=== PATIENT | male | born 1955 | race Two or more races ===

== ENCOUNTER 2025-05-06 04:16 | Emergency (ER) | payer MEDICARE, MEDICAID, SELFPAY ==
[2025-05-06 04:23] VITALS: BP 154/88; PULSE 88; RESP 18; TEMP 36.6; O2SAT 93
--- NOTE | 2025-05-06 04:31 | EKG_ITS ---
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1955 Requested By: ED Temporary Provider Order Number: [id number] Reading MD: ED Temporary Provider Measurements Intervals [place] Rate: 72 P: 31 LA: 228 QRS: 9 QRSD: 92 T: 153 QT: 368 QTc: 404 Interpretive Statements SINUS RHYTHM WITH FIRST DEGREE AV BLOCK WITH OCCASIONAL VENTRICULAR PREMATURE COMPLEXES POSSIBLE RIGHT VENTRICULAR CONDUCTION DELAY [RSR (QR) IN V1/V2] ST DEVIATION AND MODERATE T-WAVE ABNORMALITY, CONSIDER LATERAL ISCHEMIA [-0.1+ mV T-WAVE IN I/aVL/V5/V6] Compared to ECG 08/21/2024 08:50:08 Ventricular premature complex(es) now present T-wave abnormality now present Possible ischemia now present Myocardial infarct finding no longer present /store/S0/[id number]
--- NOTE | 2025-05-06 04:51 | PD.EDCHEST ---
ED Chest Pain RME/HPI General Chief Complaint: Chest Pain Stated Complaint: RIGHT CHEST AREA PAIN Time Seen by Provider: 05/06/25 04:50 Arrival date/time: 05/06/25 04:16 RME / HPI RME / HPI narrative: 69-year-old male presents to the ED with a complaint of right-sided chest pain and shortness of breath. He has difficulty breathing while laying flat in bed and attempting to sleep. His symptoms have been going on for at least 6 months to 1 year. He is supposed to be using a CPAP machine and needs filters and a new mask however his doctor is not getting them ordered for him. Related Data Home Medications ?Medication ?Instructions ?Recorded ?Confirmed digoxin 125 mcg (0.125 mg) tablet 0.125 mg PO QDAY 01/31/19 08/21/24 (Digox) meclizine 25 mg tablet 25 mg PO QDAY PRN Dizziness Or 01/31/19 08/21/24 Vertigo atorvastatin 40 mg tablet 40 mg PO QDAY 06/15/21 08/21/24 tamsulosin 0.4 mg capsule 0.4 mg PO QDAY 08/29/21 08/22/24 apixaban 2.5 mg tablet (Eliquis) 2.5 mg PO BID 08/17/23 08/21/24 Held on 08/22/24. Instructions: Resume on 08/23/24. hold eliquis, may resume monday08/23/24 cilostazol 100 mg tablet 100 mg PO BID 08/17/23 08/21/24 cephalexin 500 mg capsule 500 mg PO TID 08/21/24 08/21/24 acetaminophen 650 mg 650 mg PO BID 08/22/24 08/22/24 tablet,extended release cyclobenzaprine 10 mg tablet 10 mg PO HS PRN pain,moderate 08/22/24 08/22/24 losartan 50 mg tablet 50 mg PO DAILY 08/22/24 08/22/24 multivitamin 1 tab PO QAM 08/22/24 08/22/24 Previous Rx's ?Medication ?Instructions ?Recorded aspirin 81 mg capsule 81 mg PO QDAY #60 caps 11/14/23 clopidogrel 75 mg tablet (Plavix) 75 mg PO QDAY #60 tabs 11/14/23 Allergies Allergy/AdvReac Type Severity Reaction Status Date / Time No Known Allergies Allergy Verified 05/06/25 04:23 Review of Systems Review of Systems Systems Reviewed: All systems reviewed, normal except as documented Past Medical History Past Medical History NEUROLOGIC: Negative Neurological Disorders, Cerebrovascular Accident, Transient Ischemic Attacks (TIA), Dementia, Alzheimer's Disease, Parkinson's Disease, Brain Tumor, Meningitis, Seizures, Epilepsy, Multiple Sclerosis, Cerebral Palsy, Amyotrophic Lateral Sclerosis (ALS/Margoth Gehrig's), Guillain-Boswell Syndrome, Spina Bifida, Paralysis, Peripheral Neuropathy, Frank's Palsy, Subdural Hematoma, Migraine, Head Trauma, Spinal Cord Injury or Traumatic Brain Injury CARDIAC: Positive Cardiac Disorders, Myocardial Infarction, Cardiac Arrhythmia, Peripheral Vascular Disease, Hypercholesterolemia and Hypertension; Negative Atrial Fibrillation, Angina, Heart Murmur, Coronary Artery Disease, Atherosclerotic Heart Disease, Aneurysm, Congestive Heart Failure, Congenital Heart Disease, Valvular Heart Disease, Rheumatic Fever, Cardiomyopathy, Edema, Pericarditis, Cellulitis, Deep Vein Thrombosis, Hypotension or Varicose Veins RESPIRATORY: Positive Asthma, Bronchitis and Tuberculosis; Negative Chronic Obstructive Pulmonary Disease (COPD), Emphysema, Pneumonia, Pulmonary Fibrosis, Pulmonary Embolism, Pulmonary Edema or Sleep Apnea GASTROINTESTINAL: Positive Gastrointestinal Disorders and Gastroesophageal Reflux Disease; Negative Hepatitis, Cirrhosis, Pancreatitis, Celiac Disease, Gall Bladder Disease, Gastrointestinal Bleed, Esophageal Varices, Ochoa's Esophagus, Colitis, Ulcerative Colitis, Diverticulitis, Diverticulosis, Ulcer, Colorectal Cancer, Irritable Bowel, Crohn's Disease, Obstructive Bowel, Hiatal Hernia, Hemorrhoids or Obesity GENITOURINARY: Positive Genitourinary Disorders and Benign Prostatic Hyperplasia; Negative Renal Disease, Kidney Stones, Polycystic Kidney Disease, Neurogenic Bladder, Inguinal Hernia, Dialysis or Prostate Cancer REPRODUCTIVE: Negative Breast Cancer or Testicular Cancer MUSCULOSKELETAL: Positive Musculoskeletal Disorders and Arthritis; Negative Muscular Dystrophy, Myasthenia Gravis, Marfan's Syndrome, Bone Cancer, Rheumatoid Arthritis, Osteoporosis, Degenerative Disk Disease, Gout, Scoliosis, Carpal Tunnel Syndrome, Fibromyalgia, Fractures, Degenerative Joint Disease, Osteomyelitis or Poliovirus ENT: Negative Cataracts, Glaucoma, Blind, Retinal Detachment, Macular Degeneration, Ear Infection, Deafness, Head Trauma or Eye Prosthesis ENDOCRINE: Negative Endocrine Disorders, Diabetes Mellitus Type 1, Diabetes Mellitus Type 2, Hypoglycemia, Marissa's Syndrome, Murtaza's Disease, Hyperthyroidism, Hypothyroidism, Parathyroid Disease, Pituitary Disease, Systemic Lupus Erythematosus, Syndrome of Inappropriate Antidiuretic Hormone (SIADH), Adrenal Disease or Graves' Disease HEMATOLOGIC: Negative Blood Disorders, Anemia, Leukemia, Hemophilia, Thalassemia, Sickle Cell Disease or Clotting Problems PSYCHO/SOCIAL: Negative Psychiatric Problems, Schizophrenia, Recreational Drug Use, Bipolar Disorder, Depression, Anxiety, Behavior Problems, Self-Mutilation, Attention Deficit Disorder, Attention Deficit Hyperactivity Disorder, Depression, Post Traumatic Stress Disorder or Eating Disorder OTHER HISTORY: Positive Hospitalization; Negative Autoimmune Disease, Down Syndrome, Autism, Developmental Delay, Shingles, Falls, Blood Transfusions, Blood Transfusion Reaction, Anesthesia Reactions, Organ Transplant, Chemotherapy, Radiation Therapy, Hyperbaric Therapy, MRSA, VRSA, Vancomycin-Resistant Enterococci, Human Immunodeficiency Virus (HIV), Chicken Pox, Measles, Mumps, Rubella (Croatian Measles), Pertussis, Clostridium Difficile, Cancer, Breast Cancer, Colorectal Cancer, Lung Cancer, Prostate Cancer or Testicular Cancer Family History FAMILY HISTORY: Positive Family Cardiac Disorders and Family Surgery; Negative Family Psychiatric Problems, Family Respiratory Disorders, Family Gastrointestinal Problems, Family Cancer or Family Anesthesia Reaction Surgical History SURGICAL: Positive Valve Replacement; Negative Cardiac Surgery, Open Heart Surgery, Coronary Artery Bypass Graft, Vascular Surgery, Coronary Stent, Cardiac Catheterization, Pacemaker, Angiogram, Auto Implanted Cardiovert Defib, Carotid Endarterectomy, Endocrine Surgery, Thyroidectomy, Ear Surgery, Tympanostomy Tube, Eye Surgery, Nose Surgery, Oral Surgery, Tonsillectomy, Adenoidectomy, Cochlear Implant, Corneal Transplant, Throat Surgery, Abdominal Surgery, Tracheostomy, Gastric Bypass Surgery, Gastrostomy, Bowel Surgery, Nephrectomy, Transurethral Resection, Joint Replacement, Amputation, Open Reduction Internal Fixation, Arthroscopy, Neurologic Surgery, Brain Shunt, Vasectomy or Organ Transplant Social History SMOKING STATUS: Never smoker SECOND HAND EXPOSURE: No SUBSTANCE USE: does not use ED Exam Narrative Physical exam: Alert and oriented, Gambian-speaking male, no acute distress. He is afebrile. Blood pressure 154/88, pulse 88, respirations 18 and unlabored, temp 97.8, O2 sat 93% on room air. Lungs are diminished at the bases, chest with sternotomy scar, regular rate and rhythm with mechanical valve click noted. Abdomen is soft with mild generalized tenderness. 1+ pitting edema to the bilateral lower extremities. Course Orders Category Date Time Status EKG (ED ONLY) *Do not use* NOW Care 05/06/25 04:31 Active EKG (ED Only) Stat Exams 05/06/25 04:31 Ordered Vital Signs Vital signs: Vital Signs Temperature 97.8 F 05/06/25 04:23 Pulse Rate 88 05/06/25 04:23 Respiratory Rate 18 05/06/25 04:23 Blood Pressure 154/88 H 05/06/25 04:23 Pulse Oximetry (%) 93 L 05/06/25 04:23 Oxygen Delivery Method Room Air 05/06/25 04:23 Discharge Plan Prescriptions/Referrals Prescriptions/Med Rec: No Action meclizine 25 mg tablet 25 mg PO QDAY PRN (Reason: Dizziness Or Vertigo) digoxin [Digox] 125 mcg tablet 0.125 mg PO QDAY Eliquis 2.5 mg tablet 2.5 mg PO BID cilostazol 100 mg tablet 100 mg PO BID atorvastatin 40 mg Tablet 40 mg PO QDAY tamsulosin 0.4 mg capsule 0.4 mg PO QDAY Patient Comments: RYANN Barakat C PSULA POR V A ORAL TODOS LOS D clopidogrel [Plavix] 75 mg Tablet 75 mg PO QDAY Qty: 60 0RF aspirin 81 mg Capsule 81 mg PO QDAY Qty: 60 0RF cephalexin 500 mg Capsule 500 mg PO TID multivitamin Tablet 1 tab PO QAM losartan 50 mg Tablet 50 mg PO DAILY cyclobenzaprine 10 mg Tablet 10 mg PO HS PRN (Reason: pain,moderate) acetaminophen 650 mg Tablet Extended Release 650 mg PO BID Patient/Caregiver Discharge Instructions Print Language: Gambian
--- NOTE | 2025-05-06 04:55 | XR_ITS ---
Examination: PA lateral chest 2 views TECHNIQUE: Upright PA and lateral chest 2 views INDICATION: Chest pain today. Date and time: May 06, 2025 0500 hours FINDINGS: Cardiac valve ring likely aortic Median sternotomy wires Minor prominence left ventricle No pneumonia or pulmonary edema Increased AP dimension chest IMPRESSION: No pneumonia or pulmonary edema
--- NOTE | 2025-05-06 05:22 | PD.EDRME ---
Rapid Medical Screening Exam RME Chief Complaint: Chest Pain Time Seen by Provider: 05/06/25 04:50 Vital signs: Vital Signs Temperature 97.8 F 05/06/25 04:23 Pulse Rate 88 05/06/25 04:23 Respiratory Rate 18 05/06/25 04:23 Blood Pressure 154/88 H 05/06/25 04:23 Pulse Oximetry (%) 93 L 05/06/25 04:23 Oxygen Delivery Method Room Air 05/06/25 04:23 RME Narrative: 69-year-old male presents to the ED with a complaint of right-sided chest pain and shortness of breath. He has difficulty breathing while laying flat in bed and attempting to sleep. His symptoms have been going on for at least 6 months to 1 year. He is supposed to be using a CPAP machine and needs filters and a new mask however his doctor is not getting them ordered for him. I have greeted and performed a focused initial assessment of this patient. A comprehensive ED assessment and evaluation of the patient, analysis of all test results, and completion of the medical decision making process will be conducted by additional ED providers.
[2025-05-06 05:37] LABS: Basophils % (Auto) 0 % (0-2.5); Eosinophils # (Auto) 0.2 Thou/mm3 (0.0-0.5); Eosinophils % (Auto) 4 % (0-10); Hematocrit 39.7 % (41.0-53.0); Hemoglobin 14.2 g/dL (13.5-16.0); Immature Granulocytes % (Auto) 0 % (0-0); Immature Granulocytes Auto 0.01 Thou/mm3 (0.00-0.00); Lymphocytes # (Auto) 0.9 Thou/mm3 (1.0-4.8); Lymphocytes % (Auto) 18 % (10-50); Mean Corpuscular HGB Conc 35.8 g/dl (31.0-37.0); Mean Corpuscular Hemoglobin 31.5 pg (25.0-35.0); Mean Corpuscular Volume 88 fL (80-100); Monocytes # (Auto) 0.5 Thou/mm3 (0.0-0.8); Monocytes % (Auto) 9 % (0-12); Neutrophils # (Auto) 3.3 Thou/mm3 (1.8-7.7); Neutrophils % (Auto) 68 % (37-80); Nucleated Red Blood Cell % 0 /100 WBC (0); Platelet Count 179 Thou/mm3 (140-440); RDW Standard Deviation 43.2 fL (35.1-43.9); Red Blood Count 4.51 Miln/mm3 (4.50-5.90); White Blood Count 4.9 Thou/mm3 (3.8-10.6)
[2025-05-06 05:58] LABS: B-Type Natriuretic Peptide < 20 pg/mL (0-100)
[2025-05-06 05:59] LABS: Alanine Aminotransferase 24 U/L (10-49); Albumin, Serum 4.2 gm/dL (3.4-4.8); Alkaline Phosphatase 68 U/L (46-116); Anion Gap 9 (7-16); BUN/Creatinine Ratio 11 Ratio (12-20); Bilirubin,Total 0.5 mg/dL (0.3-1.2); Blood Urea Nitrogen 10 mg/dL (9-23); Calcium 9.1 mg/dL (8.3-10.6); Calcium (Corrected) 9.1 mg/dL (8.5-10.1); Carbon Dioxide 24.8 mMol/L (20.0-31.0); Chloride 109 mMol/L (98-107); Creatinine (Component) 0.9 mg/dL (0.6-1.3); Globulin 2.1 gm/dL (2.3-3.5); Glucose 102 mg/dL (74-106); LDH (Lactate Dehydrogenase) 215 U/L (120-246); Magnesium 1.8 mg/dL (1.6-2.6); Osmolality,Calculated 283 (275-295); Potassium 4.1 mMol/L (3.4-5.1); Sodium 143 mMol/L (136-145); Total Protein 6.3 gm/dL (5.7-8.2); Troponin I < 0.020 ng/mL (0.0-0.045); eGFR > 60 See Note
[2025-05-06 06:00] LABS: Partial Thromboplastin Time 25.8 Seconds (22.0-36.0); Prothrombin Time 10.7 Seconds (9.0-12.2)
[2025-05-06 06:19] LABS: Collection Type, Urine Clean Catch; Squamous Epithelial Cell,Urine 0 /hpf (0-5)
[2025-05-06 06:36] LABS: Amphetamine/Methamp Scrn,U Negative (Negative); Barbiturate Screen,Urine Negative (Negative); Benzodiazepines Screen,Urine Negative (Negative); Benzoylecgonine Screen, Ur Negative (Negative); Fentanyl Screen,Urine Negative (Negative); Opiate Screen,Urine Negative (Negative); THC Screen,Urine Negative (Negative)
[2025-05-06 06:45] LABS: Bacteria,Urine Rare; Bilirubin,Urine Negative (Negative); Blood,Urine Negative (Negative); Clarity,Urine Clear (Clear/Hazy); Color,Urine Colorless (Lt Yel-Yel); Glucose, Urine Negative (Negative); Ketones,Urine Negative (Negative); Leukocyte Esterase,Urine Negative (Negative); Nitrite,Urine Negative (Negative); Protein,Urine Negative (Neg - Trace); RBC,Urine 1 /hpf (0-3); Urobilinogen,Urine Negative mg/dL (0.0-1.0); WBC,Urine 1 /hpf (0-5)
[2025-05-06 07:53] VITALS: BP 161/96; PULSE 81; RESP 19; TEMP 36.7; O2SAT 96
[2025-05-06 07:59] VITALS: BMI 35.4
--- NOTE | 2025-05-06 08:29 | XR_ITS ---
Examination: AP chest single view Technique one AP portable upright chest single view Date and time: May 06, 2025 0837 hours Comparison May 06, 2025 INDICATIONS: Onset acute chest pain today FINDINGS: Normal heart size Aortic valve ring Median sternotomy wires. No pneumonia or pulmonary edema IMPRESSION: No active disease
[2025-05-06] MEDS: ASPIRIN 81 MG CHEW 324 MG PO (09:04)
[2025-05-06 09:05] VITALS: PULSE 83; RESP 19; RESP 97
[2025-05-06] MEDS: SODIUM CHLORIDE 0.9% 500 ML 500 ML 999 ML IV (09:17)
[2025-05-06 09:19] LABS: Digoxin 0.6 ng/mL (0.8-2.0); Magnesium 1.9 mg/dL (1.6-2.6); Troponin I < 0.020 ng/mL (0.0-0.045)
--- NOTE | 2025-05-06 09:20 | PD.EDCHEST ---
ED Chest Pain RME/HPI General Chief Complaint: Chest Pain Stated Complaint: RIGHT CHEST AREA PAIN Time Seen by Provider: 05/06/25 04:50 Arrival date/time: 05/06/25 04:16 Limitations: no limitations RME / HPI RME / HPI narrative: 69-year-old male presents to the ED with a complaint of right-sided chest pain and shortness of breath. He has difficulty breathing while laying flat in bed and attempting to sleep. His symptoms have been going on for at least 6 months to 1 year. He is supposed to be using a CPAP machine and needs filters and a new mask however his doctor is not getting them ordered for him. I have greeted and performed a focused initial assessment of this patient. A comprehensive ED assessment and evaluation of the patient, analysis of all test results, and completion of the medical decision making process will be conducted by additional ED providers. DR. TERRY MAIN ED EVALUATION: 69 year old male with history of hypertension, hyperlipidemia, metallic aortic valve replacement (2003) presents to the ED for evaluation of right-sided chest pain for the past 1.5 days. Pain is described as persistent and has lasted for more than 24 hours, localized to the right side of the chest and does not radiate. It is not associated with shortness of breath, sweating, fevers, chills, nausea, or vomiting. The patient denies any history of stent placement or recent cardiac interventions. There has been no change in physical activity or known triggers for the pain. There are no other associated symptoms like dizziness or palpitations. Related Data Home Medications ?Medication ?Instructions ?Recorded ?Confirmed digoxin 125 mcg (0.125 mg) tablet 0.125 mg PO QDAY 01/31/19 08/21/24 (Digox) meclizine 25 mg tablet 25 mg PO QDAY PRN Dizziness Or 01/31/19 08/21/24 Vertigo atorvastatin 40 mg tablet 40 mg PO QDAY 06/15/21 08/21/24 tamsulosin 0.4 mg capsule 0.4 mg PO QDAY 08/29/21 08/22/24 apixaban 2.5 mg tablet (Eliquis) 2.5 mg PO BID 08/17/23 08/21/24 Held on 08/22/24. Instructions: Resume on 08/23/24. hold eliquis, may resume monday08/23/24 cilostazol 100 mg tablet 100 mg PO BID 08/17/23 08/21/24 cephalexin 500 mg capsule 500 mg PO TID 08/21/24 08/21/24 acetaminophen 650 mg 650 mg PO BID 08/22/24 08/22/24 tablet,extended release cyclobenzaprine 10 mg tablet 10 mg PO HS PRN pain,moderate 08/22/24 08/22/24 losartan 50 mg tablet 50 mg PO DAILY 08/22/24 08/22/24 multivitamin 1 tab PO QAM 08/22/24 08/22/24 Previous Rx's ?Medication ?Instructions ?Recorded aspirin 81 mg capsule 81 mg PO QDAY #60 caps 11/14/23 clopidogrel 75 mg tablet (Plavix) 75 mg PO QDAY #60 tabs 11/14/23 Allergies Allergy/AdvReac Type Severity Reaction Status Date / Time No Known Allergies Allergy Verified 05/06/25 04:23 Review of Systems Review of Systems Systems Reviewed: All systems reviewed, normal except as documented Past Medical History Past Medical History CARDIAC: Positive Cardiac Disorders, Myocardial Infarction, Cardiac Arrhythmia, Peripheral Vascular Disease, Hypercholesterolemia and Hypertension RESPIRATORY: Positive Asthma, Bronchitis and Tuberculosis GASTROINTESTINAL: Positive Gastrointestinal Disorders and Gastroesophageal Reflux Disease GENITOURINARY: Positive Genitourinary Disorders and Benign Prostatic Hyperplasia MUSCULOSKELETAL: Positive Musculoskeletal Disorders and Arthritis OTHER HISTORY: Positive Hospitalization Family History FAMILY HISTORY: Positive Family Cardiac Disorders and Family Surgery Surgical History SURGICAL: Positive Valve Replacement and Coronary Stent Social History SMOKING STATUS: Never smoker SECOND HAND EXPOSURE: No SUBSTANCE USE: does not use ED Exam General Limitations: Present no limitations General appearance: Present alert and in no apparent distress Head Head exam: Present atraumatic, normocephalic and normal inspection Eye Eye exam: Present normal appearance, PERRL and EOMI ENT ENT exam: Present normal exam, normal oropharynx and mucous membranes moist Neck Neck exam: Present normal inspection, full ROM and trachea midline Chest Chest inspection: Present normal inspection and symmetric chest wall rise Respiratory Respiratory exam: Present normal lung sounds bilaterally Cardiovascular Cardiovascular exam: Present regular rate, normal rhythm and normal heart sounds Abdominal Exam Abdominal exam: Present soft and normal bowel sounds Extremities Exam Extremities exam: Present normal inspection and full ROM Back Exam Back exam: Present normal inspection and full ROM Neurological Exam Neurological exam: Present alert, oriented X3 and CN II-XII intact Psychiatric Psychiatric exam: Present normal affect and normal mood Skin Skin exam: Present warm, dry, intact and normal color Course Quality Measures none Orders Category Date Time Status Bedside COVID-19 Antigen Test NOW Care 05/06/25 04:55 Completed Bedside Influenza A&B Antigen Test NOW Care 05/06/25 04:56 Completed Service Supervisor STAT Care 05/06/25 08:29 Completed Continuous Pulse Oximetry ONCE Care 05/06/25 08:29 Completed EKG (ED ONLY) *Do not use* NOW Care 05/06/25 04:31 Completed Insert IV STAT Care 05/06/25 08:29 Completed EKG (ED Only) Stat Exams 05/06/25 04:31 Draft XR chest 1V portable Stat Exams 05/06/25 08:29 Completed XR chest 2V Stat Exams 05/06/25 04:55 Completed B-Type Natriuretic Peptide Stat Lab 05/06/25 05:20 Completed CBC Stat Lab 05/06/25 05:20 Completed Comprehensive Metabolic Panel Stat Lab 05/06/25 05:20 Completed Digoxin Stat Lab 05/06/25 08:48 Completed Drug Screen,Urine Stat Lab 05/06/25 06:16 Completed LDH (Lactate Dehydrogenase) Stat Lab 05/06/25 05:20 Completed Magnesium Stat Lab 05/06/25 05:20 Completed Magnesium Stat Lab 05/06/25 08:48 Completed Partial Thromboplastin Time Stat Lab 05/06/25 05:20 Completed Prothrombin Time with INR Stat Lab 05/06/25 05:20 Completed Troponin I Stat Lab 05/06/25 05:20 Completed Troponin I Stat Lab 05/06/25 08:48 Completed Urinalysis Stat Lab 05/06/25 06:16 Completed Aspirin Chew Med 05/06/25 08:29 Discontinued 324 mg PO X1 ONE Sodium Chloride 0.9% 500 ml [Ns] 500 ml Med 05/06/25 08:29 Discontinued IV 999 mls/hr Oxygen Delivery NOW RT 05/06/25 08:29 Completed Vital Signs Vital signs: Vital Signs Temperature 97.8 F 05/06/25 04:23 Pulse Rate 88 05/06/25 04:23 Respiratory Rate 18 05/06/25 04:23 Blood Pressure 154/88 H 05/06/25 04:23 Pulse Oximetry (%) 93 L 05/06/25 04:23 Oxygen Delivery Method Room Air 05/06/25 04:23 Pulse ox is 93% on room air which is adequate. Chest Pain MDM Narrative MDM Narrative:: Jami Robbins am scribing for and in the presence of Dr. Terry. Patient data External records reviewed:: [facility] previous records (I reviewed ED Visit on 07/04/2024 ) Clinical information provided by:: patient Social determinants that could affect healthcare access:: none Patient has the following chronic illnesses:: hypertension, hyperlipidemia, metallic aortic valve replacement (2003) How is presenting disease/condition affected by chronic disease/condition?: exacerbated by Evaluation data The following diagnostics were reviewed and interpreted by me:: lab results, radiology exam(s) and EKG tracing(s) (05/06/2025 @ 07:49 AM. Sinus rhythm, first degree AV block with occasional PVC, HR 72, intraventricular conduction defects, T-wave inversion in the lateral leads. ) Lab and/or radiology exams considered but not ordered:: None Interpretation Summary: Ordering Physician: Theresa Howe PA-C Date of Service: 05/06/25 Procedure(s): XR chest 2V Accession Number(s): [id number] cc: Dallas Bowden MD; Theresa Howe PA-C; Adela Romo PA-C~ Examination: PA lateral chest 2 views TECHNIQUE: Upright PA and lateral chest 2 views INDICATION: Chest pain today. Date and time: May 06, 2025 0500 hours FINDINGS: Cardiac valve ring likely aortic Median sternotomy wires Minor prominence left ventricle No pneumonia or pulmonary edema Increased AP dimension chest IMPRESSION: No pneumonia or pulmonary edema Dictated By: Dallas Bowden MD Signed By: <Electronically signed by Dallas Bowden MD in OV> 05/06/25 0648 Ordering Physician: Hany Terry MD Date of Service: 05/06/25 Procedure(s): XR chest 1V portable Accession Number(s): [id number] cc: Hany Terry MD; Dallas Bowden MD; Adela Romo PA-C~ Examination: AP chest single view Technique one AP portable upright chest single view Date and time: May 06, 2025 0837 hours Comparison May 06, 2025 INDICATIONS: Onset acute chest pain today FINDINGS: Normal heart size Aortic valve ring Median sternotomy wires. No pneumonia or pulmonary edema IMPRESSION: No active disease Dictated By: Dallas Bowden MD Signed By: <Electronically signed by Dallas Bowden MD in OV> 05/06/25 0916 Medications / Prescriptions Medications or Prescriptions considered but not ordered:: None Medication administrations:: Medication Administration History Discontinued Medications Aspirin (Aspirin 81 Mg Chew) 324 mg PO X1 ONE Stop: 05/06/25 08:30 Last Admin: 05/06/25 09:04 Dose: 324 mg Documented By: JAMES Sodium Chloride (Ns) 500 mls @ 999 mls/hr IV .Q31M ONE Stop: 05/06/25 08:59 Last Infusion: 05/06/25 10:00 Dose: Infused Documented By: Admin: 05/06/25 09:17 Dose: 999 mls/hr Documented By: See above Consultations Consultation(s) initiated? (list below): No Diagnosis Most likely diagnosis given after review of the tests above:: Chest pain Admission Indicated Admission indicated?: not indicated Admission Request Was there a request for admission?: No Disposition Plan Disposition Plan: Discharge Discharge Attestation Discharge Attestation: The patient and all family members were given an opportunity to ask questions and understood the discharge instructions. Discharge instructions specifically effects, indications for sooner follow up or return to the emergency department, and the expected course of current diagnosis. Patient condition: Stable Discharge Plan Plan Patient Disposition: HOME (Self Care) Prescriptions/Referrals Prescriptions/Med Rec: No Action meclizine 25 mg tablet 25 mg PO QDAY PRN (Reason: Dizziness Or Vertigo) digoxin [Digox] 125 mcg tablet 0.125 mg PO QDAY Eliquis 2.5 mg tablet 2.5 mg PO BID cilostazol 100 mg tablet 100 mg PO BID atorvastatin 40 mg Tablet 40 mg PO QDAY tamsulosin 0.4 mg capsule 0.4 mg PO QDAY Patient Comments: RYANN 1 C PSULA POR V A ORAL TODOS LOS D clopidogrel [Plavix] 75 mg Tablet 75 mg PO QDAY Qty: 60 0RF aspirin 81 mg Capsule 81 mg PO QDAY Qty: 60 0RF cephalexin 500 mg Capsule 500 mg PO TID multivitamin Tablet 1 tab PO QAM losartan 50 mg Tablet 50 mg PO DAILY cyclobenzaprine 10 mg Tablet 10 mg PO HS PRN (Reason: pain,moderate) acetaminophen 650 mg Tablet Extended Release 650 mg PO BID Referrals: Adela Romo PA-C [Primary Care Provider] - In 1 week Problem List Clinical Impression: Chest pain Patient/Caregiver Discharge Instructions Education Materials: ED Chest Pain, Uncertain Cause Additional Instructions: Follow-up with your primary care doctor in 3 to 5 days for recheck and consider stress test and cardiology appointment. You can return to the emergency department sooner if symptoms worsen or if you notice any new, concerning issues. Print Language: Yi Stand Alone Forms: Helen Award Info., Patient Portal Info Letter
[2025-05-06 12:58] VITALS: BP 162/97; PULSE 75; RESP 20; TEMP 36.7; O2SAT 94
== END 2025-05-06 13:13 | disposition home or self-care (01) ==
PROVIDERS: Physician Assistant; Emergency Provider Family Medicine; PCP Physician Assistant
DX: R07.89 Other chest pain (principal); I44.0 Atrioventricular block, first degree; I49.3 Ventricular premature depolarization; I10 Essential (primary) hypertension; I25.2 Old myocardial infarction; E78.00 Pure hypercholesterolemia, unspecified; Z95.5 Presence of coronary angioplasty implant and graft
CPT/HCPCS: 36415; 71045; 71046; 80053; 80162; 80307; 81001; 83615; 83735; 83880; 84484; 85025; 85610; 85730; 87400; 87811; 93005; 96360; 99284; J7040; A9270

== ENCOUNTER → 2025-08-22 | Outpatient (CLI) | payer MEDICARE, MEDICAID, SELFPAY ==
--- NOTE | 2025-08-22 10:43 | XR_ITS ---
Examination:Right hip AP, lateral, AP pelvis 3 views Technique: Hip AP lateral, AP pelvis, 3 views Exam date and time:August 22, 2025, 10:50 AM INDICATIONS: Right hip pain beginning 2 years ago. FINDINGS: Moderate osteopenia. Moderate bilateral hip osteoarthritis. No hip or pelvic fracture IMPRESSION: Moderate bilateral hip osteoarthritis.
== END | disposition home or self-care (01) ==
PROVIDERS: PCP Physician Assistant; Referring Provider Internal Medicine; Visit Provider Internal Medicine
DX: M16.0 Bilateral primary osteoarthritis of hip (principal)
CPT/HCPCS: 73502

== ENCOUNTER 2025-11-21 13:25 | Observation (INO) | payer MEDICARE, MEDICAID, SELFPAY ==
[2025-11-21] VITALS (7 sets, daily range): BP systolic 129–155; BP diastolic 82–98; PULSE 66–99; RESP 16–19; TEMP 36.6–36.8; O2SAT 95–98; BMI 38.7
--- NOTE | 2025-11-21 13:36 | EKG_ITS ---
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
--- NOTE | 2025-11-21 13:53 | XR_ITS ---
AP portable chest: 11/21/2025 at 2:01 p.m. INDICATION: Chest pain for 2 days Comparison study 05/06/2025 IMPRESSION: 1. Heart size mediastinum are normal 2. Patient is status post aortic valve replacement and sternotomy wire sutures are noted. 3. Both lungs are well expanded and clear there are some very minimal chronic areas of pleural fibrosis at the right lateral lung base of no concern
--- NOTE | 2025-11-21 13:54 | EDRME_ITS ---
Rapid Medical Screening Exam RME Arrival date/time: 11/21/25 13:25 70-year-old male with a history of a CVA on Plavix, hyperlipidemia, hypertension, presents to the emergency room with a chief complaint of left- sided sternal 10 out of 10 chest pain that radiates up his left neck x 2 hours I have greeted and performed a focused initial assessment of this patient. A comprehensive ED assessment and evaluation of the patient, analysis of all test results, and completion of the medical decision making process will be conducted by additional ED providers. Chief Complaint: Chest Pain Time Seen by Provider: 11/21/25 13:43 Vital signs: Vital Signs Temperature 98.2 F 11/21/25 13:50 Pulse Rate 99 11/21/25 13:50 Respiratory Rate 18 11/21/25 13:50 Blood Pressure 150/97 H 11/21/25 13:50 Pulse Oximetry (%) 96 11/21/25 13:50 Oxygen Delivery Method Room Air 11/21/25 13:50 Vital signs reviewed by provider: Yes Exam: Left-sided sternal chest pain 10 out of 10 that radiates up the left neck Clear bilateral lung sounds Clinical Impression: STEMI/NSTEMI/chest pain
[2025-11-21 14:23] LABS: Collection Type, Urine Clean Catch; RBC,Urine 0 /hpf (0-3); WBC,Urine 0 /hpf (0-5)
[2025-11-21 14:25] LABS: Basophils # (Auto) 0.0 Thou/mm3 (0.0-0.2); Basophils % (Auto) 1 % (0-2.5); Eosinophils # (Auto) 0.1 Thou/mm3 (0.0-0.5); Eosinophils % (Auto) 1 % (0-10); Hematocrit 44.8 % (41.0-53.0); Hemoglobin 15.5 g/dL (13.5-16.0); Immature Granulocytes Auto 0.01 Thou/mm3 (0.00-0.00); Lymphocytes # (Auto) 0.9 Thou/mm3 (1.0-4.8); Lymphocytes % (Auto) 15 % (10-50); Mean Corpuscular HGB Conc 34.6 g/dl (31.0-37.0); Mean Corpuscular Hemoglobin 31.4 pg (25.0-35.0); Mean Corpuscular Volume 91 fL (80-100); Monocytes # (Auto) 0.5 Thou/mm3 (0.0-0.8); Monocytes % (Auto) 9 % (0-12); Neutrophils # (Auto) 4.5 Thou/mm3 (1.8-7.7); Neutrophils % (Auto) 74 % (37-80); Nucleated Red Blood Cell # 0.00 Thou/mm3 (0.00-0.00); Nucleated Red Blood Cell % 0 /100 WBC (0); Platelet Count 175 Thou/mm3 (140-440); RDW Standard Deviation 42.5 fL (35.1-43.9); Red Blood Count 4.94 Miln/mm3 (4.50-5.90); White Blood Count 6.0 Thou/mm3 (3.8-10.6)
[2025-11-21 14:28] LABS: Bilirubin,Urine Negative (Negative); Blood,Urine Negative (Negative); Clarity,Urine Clear (Clear/Hazy); Color,Urine Colorless (Lt Yel-Yel); Culture Indicated,Urine Not Indicated; Glucose, Urine Negative (Negative); Ketones,Urine Negative (Negative); Leukocyte Esterase,Urine Negative (Negative); Nitrite,Urine Negative (Negative); PH,Urine 6.5 (5.0-7.0); Protein,Urine Negative (Neg - Trace); Specific Gravity,Urine 1.007 (1.001-1.035); Squamous Epithelial Cell,Urine < 1 /hpf (0-5); Urobilinogen,Urine Negative mg/dL (0.0-1.0)
[2025-11-21 14:40] LABS: INR 1.0 (0.9-1.3); Partial Thromboplastin Time 25.6 Seconds (22.0-36.0); Prothrombin Time 10.8 Seconds (9.0-12.2)
[2025-11-21 14:43] LABS: B-Type Natriuretic Peptide 44 pg/mL (0-100)
[2025-11-21 14:49] LABS: Alanine Aminotransferase 29 U/L (10-49); Albumin, Serum 4.5 gm/dL (3.4-4.8); Albumin/Globulin Ratio 1.9 (1.2-2.2); Alkaline Phosphatase 74 U/L (46-116); Anion Gap 10 (7-16); Aspartate Amino Transferase 24 U/L (0-34); BUN/Creatinine Ratio 13 Ratio (12-20); Bilirubin,Total 0.6 mg/dL (0.3-1.2); Blood Urea Nitrogen 12 mg/dL (9-23); Calcium 9.2 mg/dL (8.3-10.6); Calcium (Corrected) 9.2 mg/dL (8.5-10.1); Carbon Dioxide 27.3 mMol/L (20.0-31.0); Chloride 104 mMol/L (98-107); Creatinine (Component) 0.9 mg/dL (0.6-1.3); Estimated Creatinine Clearance 90.9 mL/min (>60); Globulin 2.4 gm/dL (2.3-3.5); Glucose 106 mg/dL (74-106); Osmolality,Calculated 280 (275-295); Potassium 3.9 mMol/L (3.4-5.1); Sodium 141 mMol/L (136-145); Total Protein 6.9 gm/dL (5.7-8.2); Troponin I < 0.020 ng/mL (0.0-0.045); eGFR > 60 See Note
--- NOTE | 2025-11-21 15:54 | PD.EDCHEST ---
ED Chest Pain RME/HPI General Chief Complaint: Chest Pain Stated Complaint: CHEST PAIN RADIATES TO BACK AND FEET Time Seen by Provider: 11/21/25 13:43 Arrival date/time: 11/21/25 13:25 RME / HPI RME / HPI narrative: 11/21/25 13:25 70-year-old male with a history of a CVA on Plavix, hyperlipidemia, hypertension, presents to the emergency room with a chief complaint of left-sided sternal 10 out of 10 chest pain that radiates up his left neck x 2 hours I have greeted and performed a focused initial assessment of this patient. A comprehensive ED assessment and evaluation of the patient, analysis of all test results, and completion of the medical decision making process will be conducted by additional ED providers. DR. YASMANY HOPKINS ED EVALUATION, see MDM. Exam: Left-sided sternal chest pain 10 out of 10 that radiates up the left neck Clear bilateral lung sounds Impression: STEMI/NSTEMI/chest pain Related Data Home Medications ?Medication ?Instructions ?Recorded ?Confirmed digoxin 125 mcg (0.125 mg) tablet 0.125 mg PO QDAY 01/31/19 08/21/24 (Digox) meclizine 25 mg tablet 25 mg PO QDAY PRN Dizziness Or 01/31/19 08/21/24 Vertigo atorvastatin 40 mg tablet 40 mg PO QDAY 06/15/21 08/21/24 tamsulosin 0.4 mg capsule 0.4 mg PO QDAY 08/29/21 08/22/24 apixaban 2.5 mg tablet (Eliquis) 2.5 mg PO BID 08/17/23 08/21/24 Held on 08/22/24. Instructions: Resume on 08/23/24. hold eliquis, march resume monday08/23/24 cilostazol 100 mg tablet 100 mg PO BID 08/17/23 08/21/24 cephalexin 500 mg capsule 500 mg PO TID 08/21/24 08/21/24 acetaminophen 650 mg 650 mg PO BID 08/22/24 08/22/24 tablet,extended release cyclobenzaprine 10 mg tablet 10 mg PO HS PRN pain,moderate 08/22/24 08/22/24 losartan 50 mg tablet 50 mg PO DAILY 08/22/24 08/22/24 multivitamin 1 tab PO QAM 08/22/24 08/22/24 Previous Rx's ?Medication ?Instructions ?Recorded aspirin 81 mg capsule 81 mg PO QDAY #60 caps 11/14/23 clopidogrel 75 mg tablet (Plavix) 75 mg PO QDAY #60 tabs 11/14/23 Allergies Allergy/AdvReac Type Severity Reaction Status Date / Time No Known Allergies Allergy Verified 11/21/25 13:28 Review of Systems Review of Systems Systems Reviewed: All systems reviewed, normal except as documented Past Medical History Past Medical History CARDIAC: Positive Cardiac Disorders, Myocardial Infarction, Cardiac Arrhythmia, Peripheral Vascular Disease, Hypercholesterolemia and Hypertension RESPIRATORY: Positive Asthma, Bronchitis and Tuberculosis GASTROINTESTINAL: Positive Gastrointestinal Disorders and Gastroesophageal Reflux Disease GENITOURINARY: Positive Genitourinary Disorders and Benign Prostatic Hyperplasia MUSCULOSKELETAL: Positive Musculoskeletal Disorders and Arthritis OTHER HISTORY: Positive Hospitalization Family History FAMILY HISTORY: Positive Family Cardiac Disorders and Family Surgery Surgical History SURGICAL: Positive Valve Replacement and Coronary Stent ED Exam Narrative Physical exam: See MDM Course Quality Measures none Orders Category Date Time Status CT Screening NOW Care 11/21/25 16:01 Active EKG (ED ONLY) *Do not use* NOW Care 11/21/25 13:36 Completed EKG (ED ONLY) *Do not use* NOW Care 11/21/25 16:[address] angio chest Stat Exams 11/21/25 16:00 Completed EKG (ED Only) Stat Exams 11/21/25 13:36 Draft EKG (ED Only) Stat Exams 11/21/25 16:00 Ordered XR chest 1V portable Stat Exams 11/21/25 13:53 Completed B-Type Natriuretic Peptide Stat Lab 11/21/25 14:03 Completed CBC Stat Lab 11/21/25 14:03 Completed Comprehensive Metabolic Panel Stat Lab 11/21/25 14:03 Completed Digoxin Stat Lab 11/21/25 16:08 Completed Partial Thromboplastin Time Stat Lab 11/21/25 14:03 Completed Prothrombin Time with INR Stat Lab 11/21/25 14:03 Completed Troponin I Stat Lab 11/21/25 14:03 Completed Troponin I Stat Lab 11/21/25 16:08 Completed Urinalysis, C/S if Indicated Stat Lab 11/21/25 14:13 Completed Meclizine HCl [Antivert] Med 11/21/25 15:52 Discontinued 25 mg PO X1 ONE Morphine* Inj Med 11/21/25 16:02 Active 4 mg IVP Q30M PRN Ondansetron Inj [Zofran Inj] Med 11/21/25 16:02 Discontinued 4 mg IVP X1 ONE Vital Signs Vital signs: Vital Signs Temperature 98.2 F 11/21/25 13:50 Pulse Rate 99 11/21/25 13:50 Respiratory Rate 18 11/21/25 13:50 Blood Pressure 150/97 H 11/21/25 13:50 Pulse Oximetry (%) 96 11/21/25 13:50 Oxygen Delivery Method Room Air 11/21/25 13:50 Chest Pain MDM Narrative MDM Narrative:: This section includes all my notes and documentations, including HPI, PE, and ED course. Zen Stevens MD ? HPI: 70 year old male with history of CAD s/p PCI (mid LAD in 2022), s/p TAVR 2003, DC, hypertension, hyperlipidemia presents to the ED for evaluation of left-sided chest pain beginning at noon today and remaining constant since. Described as aching in sensation, rating 10/10 in severity. Accompanied by nausea, dizziness described as feeling drunk, and shortness of breath (also beginning at noon today). Denies fevers, chills, sweating, or vomiting. Denies any history of similar chest pain. Denies taking any medications at home. ? ROS: All negative except as documented in HPI. ? PE: GENERAL APPEARANCE:? alert and oriented x 4, well-developed, well-nourished, no acute distress VITALS: All vitals were reviewed and the pulse ox is % on room air, which is normal according to my interpretation. HEENT: Normocephalic, atraumatic; pupils equal, round, reactive to light; EOMI; right horizontal nystagmus noted, mucous membranes pink, moist; oropharynx clear NECK: Supple LUNGS: CTABL; no wheezes, no rales, no rhonchi HEART: Regular rate, regular rhythm; normal S1, S2; no murmurs ABDOMEN: non distended; normal BS;? soft, no tenderness, no guarding, no rebound; no masses, no organomegaly, no hernia?? BACK:? no CVA tenderness EXTREMITIES:? atraumatic; no edema NEUROLOGIC: awake; alert and oriented x4; cranial nerves II-XII grossly intact; right horizontal nystagmus PSYCHIATRIC:? appropriate mood and affect SKIN: warm, dry, normal color; no rashes ? I reviewed all diagnostic test results: My interpretation of the chest x-ray is status post aortic valve replacement and sternotomy wire sutures are noted, no pneumonia. My review of the Chest CTA report is: Negative for pulmonary emboli My interpretation of EKG @ 1352: NSR, rate 95, normal axis, no ectopy, Q-waves in lead II III aVF, generalized T-wave abnormalities, no STEMI. Blood tests and urine test: CBC and CMP with no acute findings. PT/PTT is within normal limits. UA negative for infection. At this point, diagnoses include: Chest pain ? Treatment here included: Morphine Meclizine Zofran ? Significant improvement noted after medication. Based on my best medical judgment, patient will be admitted for further evaluation and treatment. 1605: I spoke with engineering drafter Dr. Colin. Discussed patients PMHx, HPI, ED course, exam findings, labs, and radiology results. He agrees to consult. 1607: I spoke with hospitalist team C for admission. Discussed patients PMHx, HPI, ED course, exam findings, labs, and radiology results. The hospitalist agree to accept the patient for admission. ? Patient data External records reviewed:: [facility] previous records Clinical information provided by:: patient Social determinants that could affect healthcare access:: none Patient has the following chronic illnesses:: CAD s/p PCI (mid LAD in 2022), DC, hypertension, hyperlipidemia How is presenting disease/condition affected by chronic disease/condition?: exacerbated by Evaluation data The following diagnostics were reviewed and interpreted by me:: lab results, radiology exam(s) and EKG tracing(s) Lab and/or radiology exams considered but not ordered:: None Interpretation Summary: See above Medications / Prescriptions Medications or Prescriptions considered but not ordered:: None Medication administrations:: Medication Administration History Morphine Sulfate (Morphine Sulf Inj 4 Mg/Ml Vial) 4 mg IVP Q30M PRN PRN Reason: CHEST PAIN Last Admin: 11/21/25 16:51 Dose: 4 mg Documented By: EF Discontinued Medications Meclizine HCl (Meclizine Hcl 25 Mg Tablet) 25 mg PO X1 ONE Stop: 11/21/25 15:53 Last Admin: 11/21/25 16:52 Dose: 25 mg Documented By: EF Ondansetron HCl (Ondansetron Inj 2 Mg/Ml Inj 2 Ml) 4 mg IVP X1 ONE; Protocol Stop: 11/21/25 16:03 Last Admin: 11/21/25 16:52 Dose: 4 mg Documented By: EF See above Consultations Consultation(s) initiated? (list below): Yes Consultation #1 (Physician, Specialty, Details): See MDM Diagnosis Most likely diagnosis given after review of the tests above:: Chest pain Admission Indicated Admission indicated?: indicated Admission Request Was there a request for admission?: Yes Admission Attestation Admission request attestation: Discussed case with [] from Hospitalist service regarding admission. Discussed patients ED course, exam findings, labs, and radiology results. The Hospitalist [agrees,declines] to accept the patient for admission. Disposition Plan Disposition Plan: Admit Discharge Plan Plan Patient Disposition: Admit Acute Care w/in Hospital Prescriptions/Referrals Prescriptions/Med Rec: No Action meclizine 25 mg tablet 25 mg PO QDAY PRN (Reason: Dizziness Or Vertigo) digoxin [Digox] 125 mcg tablet 0.125 mg PO QDAY Eliquis 2.5 mg tablet 2.5 mg PO BID cilostazol 100 mg tablet 100 mg PO BID atorvastatin 40 mg Tablet 40 mg PO QDAY tamsulosin 0.4 mg capsule 0.4 mg PO QDAY Patient Comments: CONGE 1 C PSULA POR V A ORAL TODOS LOS D clopidogrel [Plavix] 75 mg Tablet 75 mg PO QDAY Qty: 60 0RF aspirin 81 mg Capsule 81 mg PO QDAY Qty: 60 0RF cephalexin 500 mg Capsule 500 mg PO TID multivitamin Tablet 1 tab PO QAM losartan 50 mg Tablet 50 mg PO DAILY cyclobenzaprine 10 mg Tablet 10 mg PO HS PRN (Reason: pain,moderate) acetaminophen 650 mg Tablet Extended Release 650 mg PO BID Referrals: Adela Romo PA-C [Primary Care Provider, Family Practice] - In 1 week Problem List Clinical Impression: Chest pain Patient/Caregiver Discharge Instructions Print Language: [place] Stand Alone Forms: Helen Award Info., Patient Portal Info Letter
--- NOTE | 2025-11-21 16:00 | XR_ITS ---
Examination: CTA chest with intravenous contrast 2-D reconstructions 3-D reconstructions, vascular Date and time of exam 11/21/2025 CTDI: vol (mGy) 19.3 DLP: (mGycm) 534 INDICATION: History of open heart surgery in the past, chest pain Technique: Multiple axial sections of the thorax have been obtained. 3 mm slice thickness, from below the hemidiaphragms to above the apices of the lungs. Mediastinal and lung density settings have been obtained. 2-D sagittal and coronal reconstructions. 3-D angiographic renderings, 3-D volume renderings, 3D post processing, vascular maximum intensity projections obtained. Contrast administered is 100 mL. Low dose protocols were performed. One or more of the following dose reduction techniques were used; automated exposure control, adjustment of the mA and/or KV according to patient size, use of iterative reconstruction technique. Findings: In the lungs, there are a few areas of mild pleural thickening along the anterior and posterior margin of the right upper lobe, and on sequence 16 image 152 there is a small 6 mm noncalcified nodule in the right middle lobe there is exceptionally minimal interstitial density around the inferior margins of the right middle lobe and at the posterior base of the right lower lobe with 1 small bleb In the left lung there are some very minimal interstitial linear densities located in a subpleural location around the posterior left lower lobe. On the images below the diaphragm there is significant cortical atrophy along the lateral margin of the left kidney. There is a very tiny cyst in the posterolateral upper right kidney. There is a metallic density in position in the region of the aortic valve, whether this represents a TAVR or other type of surgical replacement of the aortic valve is uncertain there is extensive calcification in the left main and extensively into the circumflex coronary artery there is major four-chamber cardiomegaly There is good visualization and opacification of the pulmonary arteries. No evidence of any pulmonary emboli are seen anywhere in the proximal or peripheral pulmonary arteries in either lung. IMPRESSION: 1. Negative for pulmonary emboli. 2 please see above regarding some minimal peripheral interstitial changes, and also is a 6 mm noncalcified nodule in the mid lung. Quite possibly benign, however correlation with smoking history is recommended. 3 major four-chamber cardiomegaly, status post surgical repair of the aortic valve, see above. 4. There is very extensive coronary artery calcification, most severe in the circumflex coronary artery but also prominent in the left main. 5. There is significant parenchymal atrophy in the anterolateral left mid kidney.
[2025-11-21 16:47] LABS: Digoxin 0.8 ng/mL (0.8-2.0); Troponin I < 0.020 ng/mL (0.0-0.045)
[2025-11-21] MEDS: MORPHINE SULF INJ 4 MG/ML VIAL IVP (16:51)
[2025-11-21] MEDS: ONDANSETRON INJ 2 MG/ML INJ 2 ML 4 MG IVP (16:52)
[2025-11-21] MEDS: MECLIZINE HCL 25 MG TABLET PO (16:52)
--- NOTE | 2025-11-21 17:52 | PRELIM_ITS ---
CT angiogram of the chest aorta with intravenous contrast (axial sections with sagittal and coronal reformats) November 21, 2025 at 1713 hours Clinical History: Chest pain Comparison: No prior study is available for comparison. Findings: The thoracic aorta demonstrates mild atheromatous calcification without evidence of dissection or aneurysm. The origins of the right brachiocephalic, left common carotid and left subclavian arteries are patent. The evaluation of the subsegmental pulmonary artery divisions is limited due to respiratory motion artifact. No pulmonary thromboembolism in the remainder of the pulmonary artery divisions. The mediastinum demonstrates no evidence of mass or lymphadenopathy. There is mild cardiomegaly .There is no pericardial effusion. Coronary artery calcification is noted. There are subpleural nodules in the right upper, middle and lower lobes, for example 2 mm in the right upper lobe (axial image 77/207), 9 mm in the right middle lobe (axial image 102/207) and 3 mm in the right lower lobe (axial image 108/207). There is subsegmental atelectasis in the right middle lobe and lingula. Bibasilar dependent atelectasis with scarring is present. No evidence of focal consolidation. No evidence of pleural effusion or pneumothorax. Degenerative changes are identified in the spine. Median sternotomy wires are identified. The visualized upper abdominal viscera are unremarkable. Impression: 1. No evidence of aortic dissection/aneurysm. 2. No CT evidence of pulmonary thromboembolism (limited evaluation of the subsegmental pulmonary artery divisions due to respiratory motion artifact). Recommend additional evaluation, if clinically indicated. 3. No focal consolidation or pleural effusion. 4. Right lung nodules as described. Recommend follow-up. 5. Other findings as described above. Report Electronically Signed By: Edd Fried 11/21/2025 5:52:10 PM [EST]
--- NOTE | 2025-11-21 18:08 | PD.RESEVENT ---
Documentation for date of: 11/21/25 Event Note Event Note: Called at 6:10 PM to evaluate patient for admission. Patient is a 70-year-old male with a past medical history significant for CAD s/p CABG, severe aortic stenosis s/p TAVR, paroxysmal atrial fibrillation on Eliquis and recent coronary angiogram in July 2024. Patient presented today with a chief complaint of left-sided 10/10 chest pain at rest with no radiation which he described as sharp. On exam patient had some chest wall tenderness on palpation. BP 144/98, pulse 69, RR 18, temp 98.2 F, SpO2 98% on room air. CBC and CMP within normal limits, troponin negative x 2. EKG showed sinus rhythm with first-degree AV block and rate 95. No acute ST changes noted. Dr. Colin recommended that patient be admitted for serial troponin and EKG. Will talk to night team for admission of patient. Impression: 1. ACS rule out NSTEMI Plan: ? Serial troponins ? Serial EKG ? Nitropaste as needed for chest pain ? Will talk to night team for admission. Plan of care discussed with Attending Dr. Alex Vargas MD PGY 2 Disclaimer: This note was dictated by speech recognition. Minor errors in software engineering project manager may be present due to voice recognition software.
--- NOTE | 2025-11-21 19:45 | PD.RESHP ---
Documentation for date of: 11/21/25 [facility] History of Present Illness Chief complaint: chest discomfort History of present illness: Patient is [place]-speaking and poor historian, daughter is at the bedside A 70-year-old male with significant past medical history of hypertension, hyperlipidemia, BPH, Arrhythmia, aortic valve replacement 2000, severe peripheral vascular disease, PVD on anticoagulation, CVA 2018, CAD s/p stent to LAD, memory problems presented to the hospital with chief complaints of chest pain that started around noon on the day of hospital admission. At baseline, patient is able to do all routine daily activities without any discomfort. On the noon of day of admission, he is feeding his dogs and noted sudden onset of chest discomfort predominantly in the left chest without any other associated symptoms. Reported that pain aggravates with deep inspiration and while moving. Denies trauma, fever, recent sick contacts, flulike illness, PND, orthopnea. Reported he had an episode of palpitations that lasted for few minutes. No radiation of chest pain, diaphoresis. Reported no similar complaints in the past. But on chart review, patient noted to have right-sided chest pain and difficulty in breathing for which she came to the ED and was discharged with home medications. Follows with Dr. Colin and last visit was couple of months ago. Reported that pain intensity decreased from 10-7 since the time of admission. Per chart review, patient underwent cardiac cath on July 2024 that did not show any significant coronary artery disease and was recommended to continue medical management. As per the medication list provided by the family, patient is not on warfarin and is on Eliquis. ED course: - Vitals are stable at the time of admission except for mildly elevated blood pressure 150/97 mmHg - Labs at the time of admission are significant for triglycerides 210 - EKG done at the time of admission showed normal sinus rhythm without any new acute ST and T wave changes - Chest x-ray showed no infiltrates, noted sternotomy wires, prosthetic aortic valve - CTA chest was done that is negative for pulmonary emboli, noted 6 mm noncalcified nodule in mid lung, extensive coronary artery calcification most severe in circumflex coronary artery - Admitted for observation as per director workforce management, Dr. Colin recommendations for serial EKG and troponin. Past medical history: Hypertension, hyperlipidemia, BPH, arrhythmia, aortic valve replacement in 2000, CAD s/p PCI to LAD, memory problems, CVA Past surgical history: CAD s/p PCI, metallic aortic valve replacement, bilateral PAD underwent thrombolysis Medication history: Digoxin, meclizine, clopidogrel, gabapentin, losartan, Eliquis Social history: Stopped smoking and consuming alcohol since 2003 after valve replacement Allergies: NKDA Review of Systems Review of Systems Systems Reviewed: All systems reviewed, normal except as documented Exam Vital Signs Temp Pulse Resp BP Pulse Ox O2 Del Method 97.8 F 70 16 154/98 H 98 Room Air 11/21/25 19:28 11/21/25 19:33 11/21/25 19:28 11/21/25 19:33 11/21/25 19:28 11/21/25 19:28 Narrative Exam General: Awake. HEENT: Normocephalic, atraumatic, mucous membranes moist. Heart: Regular rate and rhythm, no murmurs. Midline scar. Metallic click noted Lungs: Clear to auscultation with no wheezing or crackles. noted tenderness on the left chest Abdomen: Soft, nondistended, nontender, positive bowel sounds. ?No guarding or rebound tenderness. Neurologic: Alert and oriented x3, no gross neurological deficit, and patient able to move all 4 extremities. Extremities: No edema. Skin: No rash or ecchymoses. Results: Labs 11/22/25 05:18 11/22/25 05:18 Labs: Short CBC 11/21/25 Range/Units 14:03 WBC 6.0 (3.8-10.6) Thou/mm3 Hgb 15.5 (13.5-16.0) g/dL Hct 44.8 (41.0-53.0) % Plt Count 175 (140-440) Thou/mm3 BMP 11/21/25 14:03 Sodium 141 Potassium 3.9 Chloride 104 Carbon Dioxide 27.3 BUN 12 Creatinine 0.9 Glucose 106 Calcium 9.2 Cardiac Enzymes 11/21/25 11/21/25 Range/Units 14:03 16:08 Troponin I < 0.020 < 0.020 (0.0-0.045) ng/mL Liver Function 11/21/25 Range/Units 14:03 Total Bilirubin 0.6 (0.3-1.2) mg/dL AST 24 (0-34) U/L ALT 29 (10-49) U/L Alkaline Phosphatase 74 (46-116) U/L Albumin 4.5 (3.4-4.8) gm/dL Urine 11/21/25 Range/Units 14:13 Urine Color Colorless A (Lt Yel-Yel) Urine Clarity Clear (Clear/Hazy) Urine pH 6.5 (5.0-7.0) Ur Specific [place] 1.007 (1.001-1.035) Urine Protein Negative (Neg - Trace) Urine Glucose (UA) Negative (Negative) Quality Measures Quality Measures none Advance care planning discussed with:: patient and child Medications Home Medications and Allergies Home Medications ?Medication ?Instructions ?Recorded ?Confirmed ?Type digoxin 125 mcg (0.125 mg) tablet 0.125 mg PO QDAY 01/31/19 11/21/25 History (Digox) meclizine 25 mg tablet 25 mg PO QDAY PRN Dizziness Or 01/31/19 11/21/25 History Vertigo atorvastatin 40 mg tablet 40 mg PO QDAY 06/15/21 11/21/25 History tamsulosin 0.4 mg capsule 0.4 mg PO QDAY 08/29/21 11/21/25 History acetaminophen 650 mg 650 mg PO BID 08/22/24 11/21/25 History tablet,extended release cyclobenzaprine 10 mg tablet 10 mg PO HS PRN pain,moderate 08/22/24 11/21/25 History losartan 50 mg tablet 50 mg PO DAILY 08/22/24 11/21/25 History multivitamin 1 tab PO QAM 08/22/24 11/21/25 History gabapentin 300 mg capsule 300 mg PO BID 11/21/25 11/22/25 History ibuprofen 600 mg tablet 600 mg PO Q6H PRN fever or pain 11/21/25 11/21/25 History trazodone 50 mg tablet 50 mg PO HS PRN sleep 11/21/25 11/21/25 History Allergies Allergy/AdvReac Type Severity Reaction Status Date / Time No Known Allergies Allergy Verified 11/21/25 13:28 Visit Medications Acetaminophen (Acetaminophen 325 Mg Tablet) 650 mg PO Q6H PRN PRN Reason: Fever >101.5 Stop: 12/21/25 19:38 Enoxaparin Sodium (Enoxaparin Sod Inj 40 Mg/0.4 Ml Syringe) 40 mg SC QDAY RENETTA Stop: 12/06/25 08:59 Morphine Sulfate (Morphine Sulf Inj 4 Mg/Ml Vial) 4 mg IVP Q30M PRN PRN Reason: CHEST PAIN Last Admin: 11/21/25 16:51 Dose: 4 mg Ondansetron HCl (Ondansetron Inj 2 Mg/Ml Inj 2 Ml) 4 mg IVP Q6H PRN; Protocol PRN Reason: NAUSEA OR VOMITING Stop: 12/21/25 19:38 Pantoprazole Sodium (Pantoprazole 40 Mg Tablet) 40 mg PO QDAY RENETTA Stop: 12/22/25 08:59 Sennosides (Senna Tablet) 1 tab PO QDAY RENETTA; Protocol Stop: 12/22/25 08:59 Discontinued Medications Meclizine HCl (Meclizine Hcl 25 Mg Tablet) 25 mg PO X1 ONE Stop: 11/21/25 15:53 Last Admin: 11/21/25 16:52 Dose: 25 mg Nitroglycerin (Nitroglycerin Oint 2% 1 Inch Packet) 1 inch TOP X1 ONE Stop: 11/21/25 18:39 Last Admin: 11/21/25 19:33 Dose: Not Given Ondansetron HCl (Ondansetron Inj 2 Mg/Ml Inj 2 Ml) 4 mg IVP X1 ONE; Protocol Stop: 11/21/25 16:03 Last Admin: 11/21/25 16:52 Dose: 4 mg Assessment & Plan Plan A 70-year-old male with significant past medical history of hypertension, hyperlipidemia, BPH, Arrhythmia, aortic valve replacement 2000, severe peripheral vascular disease, PVD on anticoagulation, CVA 2017, CAD s/p stent to LAD, memory problems presented to the hospital with chief complaints of chest pain that started around noon on the day of hospital admission. # Chest pain, atypical - Presented to the hospital with chief complaints of left-sided chest pain with no associated symptoms since the noon of day of admission - Intermittent shortness of breath and palpitations - On physical examination, noted to have tenderness at the site of chest pain - Recent cath is done on 07/2024, noted to have mild disease and recommended medical management - Follows with Dr. Colin and last visit is couple of months ago - Vitals are stable at the time of admission except for mildly elevated blood pressure 150/97 mmHg Diagnostics: - Labs at the time of admission are significant for triglycerides 210 - EKG done at the time of admission showed normal sinus rhythm without any new acute ST and T wave changes - Chest x-ray showed no infiltrates, noted sternotomy wires, prosthetic aortic valve - CTA chest was done that is negative for pulmonary emboli, noted 6 mm noncalcified nodule in mid lung, extensive coronary artery calcification most severe in circumflex coronary artery Plan - Admitted for observation as per director workforce managementDr. Colin recommendations for serial EKG and troponin. - Resumed his home medications - IV morphine as needed for pain management - If the troponins and EKG does not show any new signs of ischemia, patient can be discharged tomorrow as per director workforce managementDr. Colin - Echocardiogram is ordered # Status post aortic valve replacement, 2003 - Per chart review, patient used to be on warfarin - When asked him about the home med, daughter provided list of medications and warfarin is not present in that list - Unsure why the patient is not on warfarin as of now - Per chart review, noted to have supratherapeutic INR in 2020 and warfarin was discontinued at the time Plan - Recommended day team to follow-up with the director workforce management regarding anticoagulation for valve replacement # History of arrhythmia - Per chart review, patient noted to have arrhythmia but patient did not endorse any history of arrhythmia more exact yeah yeah yesterday 62 I remember yeah I think I think you should just let the day team discussed with the attending and - No documentation of any A-fib per chart review - Currently on digoxin and Eliquis 5 mg twice daily Plan - Will continue Eliquis and digoxin for now # History of severe PAD # CVA # History of CAD s/p PCI - Patient had extensive history of PAD and underwent multiple procedures in bilateral lower extremities - Currently on dual antiplatelets, statin - Resumed his home medications # Hypertension # Hyperlipidemia # BPH - Chronic problems are stable as of now - Resumed his home medications Hospital Maintenance: Dispo: Tele DVT ppx: Eliquis GI ppx: Protonix Diet: Cardiac IV lines: Peripheral Code status: Full Patient plan of care was discussed with the attending physician, Dr. Guilherme León, PGY2 Attending Provider Attestation/Addendum Patient seen and examined at bedside with resident. Agree with assessment and plan as documented above. Patient with recurrent left sided chest wall pain. complex cardiac history however risk factors mostly optimized. Will admit for cardiology eval and serial troponin/ekg monitoring. Abdirahman Vanegas MD
[2025-11-21 20:26] LABS: Cardiac Risk Estimate 3.8 RATIO (4.0-6.7); Cholesterol 126 mg/dL (132-200); HDL Cholesterol 33 mg/dL (40-60); LDL Cholesterol,Calculated 51 mg/dL (0-130); Triglycerides 210 mg/dL (30-150)
[2025-11-21 22:38] LABS: Troponin I < 0.020 ng/mL (0.0-0.045)
[2025-11-22] VITALS (9 sets, daily range): BP systolic 124–165; BP diastolic 77–93; PULSE 59–102; RESP 16–22; TEMP 36.1–36.3; O2SAT 94–98; BMI 36.8
--- NOTE | 2025-11-22 06:00 | EKG_ITS ---
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
[2025-11-22 06:03] LABS: Basophils # (Auto) 0.0 Thou/mm3 (0.0-0.2); Basophils % (Auto) 0 % (0-2.5); Eosinophils # (Auto) 0.1 Thou/mm3 (0.0-0.5); Eosinophils % (Auto) 1 % (0-10); Hematocrit 43.1 % (41.0-53.0); Hemoglobin 14.7 g/dL (13.5-16.0); Immature Granulocytes Auto 0.02 Thou/mm3 (0.00-0.00); Lymphocytes # (Auto) 1.4 Thou/mm3 (1.0-4.8); Lymphocytes % (Auto) 19 % (10-50); Mean Corpuscular HGB Conc 34.1 g/dl (31.0-37.0); Mean Corpuscular Hemoglobin 31.1 pg (25.0-35.0); Mean Corpuscular Volume 91 fL (80-100); Monocytes # (Auto) 0.6 Thou/mm3 (0.0-0.8); Monocytes % (Auto) 8 % (0-12); Neutrophils # (Auto) 5.1 Thou/mm3 (1.8-7.7); Neutrophils % (Auto) 71 % (37-80); Nucleated Red Blood Cell # 0.00 Thou/mm3 (0.00-0.00); Nucleated Red Blood Cell % 0 /100 WBC (0); Platelet Count 172 Thou/mm3 (140-440); RDW Standard Deviation 42.0 fL (35.1-43.9); Red Blood Count 4.73 Miln/mm3 (4.50-5.90); White Blood Count 7.1 Thou/mm3 (3.8-10.6)
[2025-11-22 06:25] LABS: Alanine Aminotransferase 23 U/L (10-49); Albumin, Serum 4.0 gm/dL (3.4-4.8); Albumin/Globulin Ratio 1.7 (1.2-2.2); Alkaline Phosphatase 68 U/L (46-116); Anion Gap 11 (7-16); Aspartate Amino Transferase 21 U/L (0-34); BUN/Creatinine Ratio 11 Ratio (12-20); Bilirubin,Total 0.5 mg/dL (0.3-1.2); Blood Urea Nitrogen 10 mg/dL (9-23); Calcium 9.2 mg/dL (8.3-10.6); Calcium (Corrected) 9.2 mg/dL (8.5-10.1); Carbon Dioxide 26.0 mMol/L (20.0-31.0); Chloride 107 mMol/L (98-107); Creatinine (Component) 0.9 mg/dL (0.6-1.3); Estimated Creatinine Clearance 88.6 mL/min (>60); Globulin 2.4 gm/dL (2.3-3.5); Glucose 88 mg/dL (74-106); Glucose Estimated Average 108 mg/dL (80-131); Hemoglobin A1C 5.4 % Hgb (4.8-6.0); Osmolality,Calculated 284 (275-295); Potassium 4.3 mMol/L (3.4-5.1); Sodium 144 mMol/L (136-145); Thyroid Stimulating Hormone 2.74 uIU/mL (0.55-4.78); Total Protein 6.4 gm/dL (5.7-8.2); Troponin I < 0.020 ng/mL (0.0-0.045); eGFR > 60 See Note
[2025-11-22] MEDS: DIGOXIN 0.125 MG TABLET PO (08:12)
[2025-11-22] MEDS: CLOPIDOGREL BISULFATE 75 MG TABLET PO (08:12)
[2025-11-22] MEDS: ASPIRIN EC 81 MG TABEC PO (08:12)
[2025-11-22] MEDS: MULTIVITAMINS TABLET 1 TAB PO (08:12)
[2025-11-22] MEDS: GABAPENTIN 300 MG CAPSULE PO (08:12)
[2025-11-22] MEDS: PANTOPRAZOLE 40 MG TABLET PO (08:13)
[2025-11-22] MEDS: APIXABAN 2.5 MG TABLET 5 MG PO (08:13)
[2025-11-22] MEDS: TAMSULOSIN HCL 0.4 MG CAPSULE PO (08:13)
[2025-11-22] MEDS: LOSARTAN POTASSIUM 25 MG TABLET 50 MG PO (08:13)
--- NOTE | 2025-11-22 10:23 | PD.IMCONS ---
HPI Data of Consult Requesting Physician: Abdirahman Vanegas MD Primary Care Provider: Adela Romo PA-C Consult Narrative History of present illness: This is a 70-year-old male with significant past medical history of hypertension, hyperlipidemia, BPH, Arrhythmia, aortic valve replacement 2000, severe peripheral vascular disease, PVD on anticoagulation, CVA 2017, CAD s/p stent to LAD, pt seen in the Er with chest pain EKG negative troponin negative chest pain resolved cc:: cc: Abdirahman Vanegas MD Meds Home Medications and Allergies Home Medications ?Medication ?Instructions ?Recorded ?Confirmed ?Type digoxin 125 mcg (0.125 mg) tablet 0.125 mg PO QDAY 01/31/19 11/21/25 History (Digox) meclizine 25 mg tablet 25 mg PO QDAY PRN Dizziness Or 01/31/19 11/21/25 History Vertigo atorvastatin 40 mg tablet 40 mg PO QDAY 06/15/21 11/21/25 History tamsulosin 0.4 mg capsule 0.4 mg PO QDAY 08/29/21 11/21/25 History acetaminophen 650 mg 650 mg PO BID 08/22/24 11/21/25 History tablet,extended release cyclobenzaprine 10 mg tablet 10 mg PO HS PRN pain,moderate 08/22/24 11/21/25 History losartan 50 mg tablet 50 mg PO DAILY 08/22/24 11/21/25 History multivitamin 1 tab PO QAM 08/22/24 11/21/25 History gabapentin 300 mg capsule 300 mg PO BID 11/21/25 11/22/25 History ibuprofen 600 mg tablet 600 mg PO Q6H PRN fever or pain 11/21/25 11/21/25 History trazodone 50 mg tablet 50 mg PO HS PRN sleep 11/21/25 11/21/25 History Allergies Allergy/AdvReac Type Severity Reaction Status Date / Time No Known Allergies Allergy Verified 11/21/25 13:28 Exam Vital Signs Temp Pulse Resp BP Pulse Ox O2 Del Method 97.1 F 66 19 154/93 H 96 Room Air 11/22/25 08:00 11/22/25 08:13 11/22/25 08:00 11/22/25 08:13 11/22/25 08:00 11/22/25 08:00 Routine HEENT Exam Head: Present normocephalic and atraumatic Eye: Present EOMI and PERRL ENT: Present mucous membranes moist Routine Neck Exam Neck: Present supple and trachea midline Routine Respiratory Exam Respiratory: Present chest non-tender, lungs clear, normal breath sounds and no resp distress Routine Cardiovascular Exam Cardiovascular: Present RRR Routine Abdominal Exam Abdominal: Present soft and normoactive bowel sounds Routine Extremities Exam Extremities: Present full ROM Routine Skin Exam Skin: Present intact, dry and warm Routine Neurological Exam Neurological: Present alert, oriented X3 and CN II-XII intact Routine Psychiatric Exam Psychiatric: Present normal affect and normal thought process Results Labs 11/22/25 05:18 11/22/25 05:18 Labs: Short CBC 11/21/25 11/22/25 Range/Units 14:03 05:18 WBC 6.0 7.1 (3.8-10.6) Thou/mm3 Hgb 15.5 14.7 (13.5-16.0) g/dL Hct 44.8 43.1 (41.0-53.0) % Plt Count 175 172 (140-440) Thou/mm3 BMP 11/21/25 11/22/25 14:03 05:18 Sodium 141 144 Potassium 3.9 4.3 Chloride 104 107 Carbon Dioxide 27.3 26.0 BUN 12 10 Creatinine 0.9 0.9 Glucose 106 88 Calcium 9.2 9.2 Cardiac Enzymes 11/21/25 11/21/25 11/21/25 Range/Units 14:03 16:08 22:08 Troponin I < 0.020 < 0.020 < 0.020 (0.0-0.045) ng/mL 11/22/25 Range/Units 05:18 Troponin I < 0.020 (0.0-0.045) ng/mL Liver Function 11/21/25 11/22/25 Range/Units 14:03 05:18 Total Bilirubin 0.6 0.5 (0.3-1.2) mg/dL AST 24 21 (0-34) U/L ALT 29 23 (10-49) U/L Alkaline Phosphatase 74 68 (46-116) U/L Albumin 4.5 4.0 D (3.4-4.8) gm/dL Urine 11/21/25 Range/Units 14:13 Urine Color Colorless A (Lt Yel-Yel) Urine Clarity Clear (Clear/Hazy) Urine pH 6.5 (5.0-7.0) Ur Specific [place] 1.007 (1.001-1.035) Urine Protein Negative (Neg - Trace) Urine Glucose (UA) Negative (Negative) Assessment and Plan Assessment and plan (1) Chest pain: Status: Acute (2) Warfarin overdosage: Status: Acute (3) Hematuria: Status: Acute (4) Obstructive sleep apnea: Status: Acute (5) Hypertension: Status: Acute (6) Vascular disease, peripheral: Status: Acute Additional Assessment & Plan Additional Plan: ok to d/c home f/u as out pt
[2025-11-22] MEDS: NITROGLYCERIN OINT 2% 1 INCH PACKET TOP (11:50)
[2025-11-22] MEDS: MORPHINE SULF INJ 4 MG/ML VIAL IVP (12:28)
--- NOTE | 2025-11-22 14:14 | PD.RESPRO ---
Documentation for date of: 11/22/25 Exam Vital Signs Temp Pulse Resp BP Pulse Ox O2 Del Method 97.0 F 102 H 19 138/90 H 98 Room Air 11/22/25 12:00 11/22/25 12:00 11/22/25 12:00 11/22/25 12:00 11/22/25 12:00 11/22/25 12:00 Objective Labs 11/22/25 05:18 11/22/25 05:18 Labs: Laboratory Results - last 24 hr 11/21/25 11/21/25 11/21/25 14:03 14:13 16:08 WBC 6.0 RBC 4.94 Hgb 15.5 Hct 44.8 MCV 91 MCH 31.4 MCHC 34.6 RDW Std Deviation 42.5 Plt Count 175 Neut % (Auto) 74 Lymph % (Auto) 15 [place] % (Auto) 9 Eos % (Auto) 1 Baso % (Auto) 1 Neut # (Auto) 4.5 Lymph # (Auto) 0.9 L [place] # (Auto) 0.5 Eos # (Auto) 0.1 Baso # (Auto) 0.0 Immature Gran # (Auto) 0.01 H Absolute Nucleated RBC 0.00 Immature Gran % 0 Nucleated RBC % 0 PT 10.8 INR 1.0 APTT 25.6 Sodium 141 Potassium 3.9 Chloride 104 Carbon Dioxide 27.3 Anion Gap 10 BUN 12 Creatinine 0.9 Estim Creat Clear Calc 90.9 eGFR > 60 BUN/Creatinine Ratio [address] Glu mg/dL Hemoglobin A1c Calculated Osmolality 280 Calcium 9.2 Corrected Calcium 9.2 Total Bilirubin 0.6 AST 24 ALT 29 Alkaline Phosphatase 74 Troponin I < 0.020 < 0.020 B-Natriuretic Peptide 44 Total Protein 6.9 Albumin 4.5 Globulin 2.4 Albumin/Globulin Ratio 1.9 Triglycerides Cholesterol LDL Cholesterol, Calc HDL Cholesterol Cholesterol/HDL Ratio TSH Ur Collection Type Clean Catch Urine Color Colorless A Urine Clarity Clear Urine pH 6.5 Ur Specific [place] 1.007 Urine Protein Negative Urine Glucose (UA) Negative Urine Ketones Negative Urine Blood Negative Urine Nitrite Negative Urine Bilirubin Negative Urine Urobilinogen (Auto) Negative Ur Leukocyte Esterase Negative Urine RBC 0 Urine WBC 0 Ur Squamous Epith Cells < 1 Urine Bacteria None Ur Culture Indicated? Not Indicated Digoxin 0.8 11/21/25 11/21/25 11/22/25 19:57 22:08 05:18 WBC 7.1 RBC 4.73 Hgb 14.7 Hct 43.1 MCV 91 MCH 31.1 MCHC 34.1 RDW Std Deviation 42.0 Plt Count 172 Neut % (Auto) 71 Lymph % (Auto) 19 [place] % (Auto) 8 Eos % (Auto) 1 Baso % (Auto) 0 Neut # (Auto) 5.1 Lymph # (Auto) 1.4 [place] # (Auto) 0.6 Eos # (Auto) 0.1 Baso # (Auto) 0.0 Immature Gran # (Auto) 0.02 H Absolute Nucleated RBC 0.00 Immature Gran % 0 Nucleated RBC % 0 PT INR APTT Sodium 144 Potassium 4.3 Chloride 107 Carbon Dioxide 26.0 Anion Gap 11 BUN 10 Creatinine 0.9 Estim Creat Clear Calc 88.6 eGFR > 60 BUN/Creatinine Ratio 11 L Glucose [address] Glu mg/dL 108 Hemoglobin A1c 5.4 Calculated Osmolality 284 Calcium 9.2 Corrected Calcium 9.2 Total Bilirubin 0.5 AST 21 ALT 23 Alkaline Phosphatase 68 Troponin I < 0.020 < 0.020 B-Natriuretic Peptide Total Protein 6.4 Albumin 4.0 D Globulin 2.4 Albumin/Globulin Ratio 1.7 Triglycerides 210 H Cholesterol 126 L LDL Cholesterol, Calc 51 HDL Cholesterol 33 L Cholesterol/HDL Ratio 3.8 L TSH 2.74 Ur Collection Type Urine Color Urine Clarity Urine pH Ur Specific [place] Urine Protein Urine Glucose (UA) Urine Ketones Urine Blood Urine Nitrite Urine Bilirubin Urine Urobilinogen (Auto) Ur Leukocyte Esterase Urine RBC Urine WBC Ur Squamous Epith Cells Urine Bacteria Ur Culture Indicated? Digoxin Quality Measures Quality Measures none Assessment & Plan Assessment Current Active Medications: Generic Name Dose Route Start Last Admin Trade Name Freq PRN Reason Stop Dose Admin Acetaminophen 650 mg 11/21/25 19:39 Acetaminophen 325 Mg Tablet PO 12/21/25 19:38 Q6H PRN Fever >101.5 Apixaban 5 mg 11/22/25 09:00 11/22/25 08:13 Apixaban 2.5 Mg Tablet PO 12/22/25 08:59 5 mg BID RENETTA Administration Aspirin 81 mg 11/22/25 09:00 11/22/25 08:12 Aspirin Ec 81 Mg Tabec PO 12/22/25 08:59 81 mg QDAY RENETTA Administration Atorvastatin Calcium 40 mg 11/22/25 21:00 Atorvastatin Calcium 20 Mg Tablet PO 12/22/25 20:59 HS RENETTA Clopidogrel Bisulfate 75 mg 11/22/25 09:00 11/22/25 08:12 Clopidogrel Bisulfate 75 Mg Tablet PO 12/22/25 08:59 75 mg QDAY RENETTA Administration Digoxin 0.125 mg 11/22/25 09:00 11/22/25 08:12 Digoxin 0.125 Mg Tablet PO 12/22/25 08:59 0.125 mg QDAY RENETTA Administration Gabapentin 300 mg 11/22/25 09:00 11/22/25 08:12 Gabapentin 300 Mg Capsule PO 12/22/25 08:59 300 mg BID RENETTA Administration Losartan Potassium 50 mg 11/22/25 09:00 11/22/25 08:13 Losartan Potassium 25 Mg Tablet PO 12/22/25 08:59 50 mg DAILY RENETTA Administration Meclizine HCl 25 mg 11/22/25 01:31 Meclizine Hcl 25 Mg Tablet PO 12/22/25 01:30 QDAY PRN Dizziness Or Vertigo Morphine Sulfate 4 mg 11/21/25 16:02 11/22/25 12:28 Morphine Sulf Inj 4 Mg/Ml Vial IVP 4 mg Q30M PRN Administration CHEST PAIN Multivitamins 1 tab 11/22/25 09:00 11/22/25 08:12 Multivitamins Tablet PO 12/22/25 08:59 1 tab QAM RENETTA Administration Ondansetron HCl 4 mg 11/21/25 19:39 Ondansetron Inj 2 Mg/Ml Inj 2 Ml IVP 12/21/25 19:38 Q6H PRN NAUSEA OR VOMITING Protocol Pantoprazole Sodium 40 mg 11/22/25 09:00 11/22/25 08:13 Pantoprazole 40 Mg Tablet PO 12/22/25 08:59 40 mg QDAY RENETTA Administration Sennosides 1 tab 11/22/25 09:00 11/22/25 08:13 Senna Tablet PO 12/22/25 08:59 1 tab QDAY RENETTA Administration Protocol Tamsulosin HCl 0.4 mg 11/22/25 09:00 11/22/25 08:13 Tamsulosin Hcl 0.4 Mg Capsule PO 12/22/25 08:59 0.4 mg QDAY RENETTA Administration Trazodone HCl 50 mg 11/22/25 01:31 Trazodone Hcl 50 Mg Tablet PO 12/22/25 01:30 HS PRN sleep
[2025-11-22 15:49] LABS: Troponin I < 0.020 ng/mL (0.0-0.045)
--- NOTE | 2025-11-22 16:03 | ESDS_ITS ---
<Statement entered by Obie Vargas MD - 11/22/25 16:05> I saw and examined patient personally and supervised PGY 1 resident, Dr. Fitch with formulating a discharge plan. I agree with the documentation as listed below. Plan of care discussed with Attending Dr. Erlin Vargas MD PGY 2 Disclaimer: This note was dictated by speech recognition. Minor errors in scrap stripper hand may be present due to voice recognition software. Planned Discharge Date 11/22/25 DS: Providers Provider Date of admission: 11/21/25 19:39 Primary care physician: Adela Romo PA-C Admitting Provider: Abdirahman Vanegas MD Attending Provider on Admission: Abdirahman Vanegas MD Consults: 11/21/25 18:07 Consult to Cardiology Stat Comment: Consulting Provider: Berkley Colin Attending Provider on DC: Herminio Kern MD Discharging Provider: Herminio Kern MD DS: Diagnosis Problem List Completed Was Problem List Reviewed/Reconciled?: Yes Hospital Course Hospital Course Hospital course: Summary: A 70-year-old male with significant past medical history of hypertension, hyperlipidemia, BPH, Arrhythmia, aortic valve replacement 2000, severe peripheral vascular disease, PVD on anticoagulation, CVA 2018, CAD s/p stent to LAD, memory problems presented to the hospital with chief complaints of chest pain that started around noon on the day of hospital admission, admitted for observation of chest pain and cardiology evaluation. On admission, EKG largely unremarkable and troponin x 3 negative. Currently unclear as to why patient is experiencing recurrent chest pain as pain sometimes occurs in the middle of the night upon awakening, sometimes after meals, and occasionally occurs on exertion. Patient had 1 episode of chest pain 40 minutes following eating breakfast and repeat troponin and EKG both unremarkable, thus possible GI etiology. Per cardiology, cleared to discharge and follow-up closely outpatient. Upon questioning, patient is not on warfarin due to labile INR, medication nonadherence due to memory issues, and hx of ED visit for bleeding and was switched to Eliquis. On discharge, patient is hemodynamically stable, labs and vitals reviewed to be stable patient is ready to be discharged back home with close cardiology follow-up. Imaging: Chest x-ray showed no infiltrates, noted sternotomy wires, prosthetic aortic valve CTA chest was done that is negative for pulmonary emboli, noted 6 mm noncalcified nodule in mid lung, extensive coronary artery calcification most severe in circumflex coronary artery Discharge Recommendations: - Please take all medications as prescribed - Continue all home medications - Please follow up with your PCP within one week of discharge - If your symptoms worsen, please seek immediate medical attention and return to your nearest emergency room. - If you do not have a PCP, you may follow up at the [facility] at [facility] [address], [facility] [id number], Hospital Diagnoses: # Chest pain, atypical # Status post aortic valve replacement, 2003 # History of arrhythmia # History of severe PAD # CVA # History of CAD s/p PCI # Hypertension # Hyperlipidemia # BPH Plan of care discussed with attending Dr. Kern, and PGY-2 Dr. Vargas. Gabbie Fitch, DO Internal Medicine, PGY-1 Time Spent with Patient Time attestation: Total time spent providing and/or coordinating discharge services: 40 minutes Time spent: Greater than 30 minutes Exam Vital Signs Temp Pulse Resp BP Pulse Ox O2 Del Method 97.0 F 102 H 19 138/90 H 98 Room Air 11/22/25 12:00 11/22/25 12:00 11/22/25 12:00 11/22/25 12:00 11/22/25 12:00 11/22/25 12:00 Narrative Exam GENERAL: AOx3, no acute distress HEENT: mucous membranes moist, bilateral sclera anicteric CARDIOVASCULAR: regular rate and rhythm, S1/S2 present, no murmurs appreciated PULMONARY: clear to auscultation bilaterally, no rales/rhonchi/wheezes ABDOMINAL: soft, non-tender, non-distended, no rebound/guarding, bowel sounds present EXTREMITIES: no peripheral edema SKIN: warm and dry, intact, no rashes NEURO: CN II-XII grossly intact, no focal deficits, alert, following commands Discharge Plan Plan Patient Disposition: HOME (Self Care) Prescriptions/Referrals Prescriptions/Med Rec: No Action meclizine 25 mg tablet 25 mg PO QDAY PRN (Reason: Dizziness Or Vertigo) digoxin [Digox] 125 mcg tablet 0.125 mg PO QDAY atorvastatin 40 mg Tablet 40 mg PO QDAY tamsulosin 0.4 mg capsule 0.4 mg PO QDAY Patient Comments: RYANN HARRIS V A ORAL TODOS LOS D trazodone 50 mg tablet 50 mg PO HS PRN (Reason: sleep) Patient Comments: 1 TABLET BY MOUTH EVERY NIGHT FOR SLEEP ibuprofen 600 mg tablet 600 mg PO Q6H PRN (Reason: fever or pain) Patient Comments: 1 TABLET EVERY 6-8 HOUR WITH FOOD NEEDED FOR PAIN gabapentin 300 mg capsule 300 mg PO BID Patient Comments: TAKE 1 CAPSULE BY MOUTH TWICE A DAY clopidogrel [Plavix] 75 mg Tablet 75 mg PO QDAY Qty: 60 0RF aspirin 81 mg Capsule 81 mg PO QDAY Qty: 60 0RF multivitamin Tablet 1 tab PO QAM losartan 50 mg Tablet 50 mg PO DAILY cyclobenzaprine 10 mg Tablet 10 mg PO HS PRN (Reason: pain,moderate) acetaminophen 650 mg Tablet Extended Release 650 mg PO BID Referrals: Adela Romo PA-C [Primary Care Provider, Family Practice] Patient/Caregiver Discharge Instructions Print Language: Nepalese Stand Alone Forms: Helen Award Info., Patient Portal Info Letter, Work/Release Restrictions Quality Discharge Quality Measures VTE prophylaxis MD Attestestation MD Attestation I have seen and examined the patient. I was physically present for the mckeon portions of the services provided including history, physical exam, diagnosis, treatment plans and orders. I agree with assessment and plan of care as documented by residents. Even though this this note was carefully revised there may still be minor errors in scrap stripper hand due to voice recognition software. Herminio Kern MD
== END 2025-11-22 18:40 | disposition home or self-care (01) ==
LOC: SERX 18:13 → SERHOLD 20:06 → S3SX 23:39
PROVIDERS: Nurse Practitioner Family; Admitting Provider Student in an Organized Health Care Education/Training Program; Emergency Provider Emergency Medicine; PCP Physician Assistant; Visit Provider Student in an Organized Health Care Education/Training Program
DX: R07.89 Other chest pain (principal); Z95.2 Presence of prosthetic heart valve; I73.9 Peripheral vascular disease, unspecified; I25.10 Atherosclerotic heart disease of native coronary artery without angina pectoris; E78.5 Hyperlipidemia, unspecified; I10 Essential (primary) hypertension; N40.0 Benign prostatic hyperplasia without lower urinary tract symptoms; Z86.73 Personal history of transient ischemic attack (TIA), and cerebral infarction without residual deficits; Z95.5 Presence of coronary angioplasty implant and graft; Z91.148 Patient's other noncompliance with medication regimen for other reason; I49.9 Cardiac arrhythmia, unspecified
CPT/HCPCS: 36415; 71045; 71275; 80053; 80061; 80162; 81001; 83036; 83880; 84443; 84484; 85025; 85610; 85730; 93005; 96374; 96375; 96376; 99284; A4649; G0378; J2270; J2405; Q9967; A9270